=== PATIENT | male | born 1995 | race African-American/Black ===

== ENCOUNTER 2018-09-11 14:20 | Emergency (ER) | payer OTHER ==
[2018-09-11 15:15] LABS: URINE BLOOD (Dip) POC Negative (NEGATIVE); URINE GLUCOSE (Dip) POC Negative (NEGATIVE); URINE KETONES (Dip) POC Negative (NEGATIVE); URINE LEUKOCYTE EST (Dip) POC 2+ (NEGATIVE); URINE NITRITE (Dip) POC Negative (NEGATIVE); URINE TOTAL PROTEIN POC Negative (NEGATIVE)
[2018-09-11] MEDS: SOD CHLORIDE 0.9% 1,000 ML IV (15:20)
[2018-09-11] MEDS: DIPHENHYDRAMINE 50 MG INJ IV (15:21)
[2018-09-11] MEDS: METOCLOPRAMIDE 10 MG INJ IV (15:21)
[2018-09-11] MEDS: KETOROLAC 30 MG INJ IV (15:22)
[2018-09-11 15:31] LABS: WHITE BLOOD COUNT 5.6 10^3/ul (4.8-10.8)
[2018-09-11 15:31] LABS: HEMATOCRIT 45.2 % (42.0-52.0); HEMOGLOBIN 15.3 g/dl (14.0-18.0); MEAN CORPUSCULAR HGB CONC 33.8 g/dl (32.0-37.0); MEAN CORPUSCULAR VOLUME 82.6 fl (82.0-101.0); MEAN PLATELET VOLUME 9.4 fl (7.4-10.4); PLATELET COUNT 376 10^3/UL (140-415); RED BLOOD COUNT 5.47 10^6/ul (4.70-6.10); RED CELL DISTRIBUTION WIDTH 12.4 % (11.5-14.5)
[2018-09-11 15:36] LABS: ADD MAN DIFF? YES
[2018-09-11 15:49] LABS: ALANINE AMINOTRANSFERASE 17 IU/L (13-69); ALBUMIN 4.3 g/dl (3.3-4.9); ALBUMIN/GLOBULIN RATIO 1.34; ALKALINE PHOSPHATASE 97 IU/L (42-121); ANION GAP 11 (5-13); ASPARTATE AMINO TRANSFERASE 18 IU/L (15-46); BILIRUBIN,INDIRECT 0.3 mg/dl (0-1.1); BILIRUBIN,TOTAL 0.3 mg/dl (0.2-1.3); BLOOD UREA NITROGEN 10 mg/dl (7-20); CALCIUM 9.7 mg/dl (8.4-10.2); CARBON DIOXIDE 26 mmol/L (21-31); CHLORIDE 106 mmol/L (97-110); CREATININE 0.78 mg/dl (0.61-1.24); Estimated GFR > 60 mL/min (>60); GLUCOSE 84 mg/dl (70-220); LIPASE 48 U/L (23-300); POTASSIUM 4.2 mmol/L (3.5-5.1); SODIUM 143 mmol/L (135-144); TOTAL PROTEIN 7.5 g/dl (6.1-8.1)
[2018-09-11 16:39] LABS: ANISOCYTOSIS 1+ (0-0); EOSINOPHILS % (M) 3 % (0-7); LYMPHOCYTES #M 3.4 10^3/ul (0.8-2.9); LYMPHOCYTES % (M) 62 % (15-51); METAMYELOCYTES %M 1 % (0-0); MICROCYTOSIS 1+ (0-0); MONOCYTE #M 0.1 10^3/ul (0.3-0.9); MONOCYTES % (M) 2 % (0-11); PLATELET ESTIMATE NORMAL; REACTIVE LYMPHOCYTES% (M) 1 % (0-0); SEGMENTED NEUTROPHILS (M) % 31 % (39-77); SMUDGE%M 14 % (0-0)
== END 2018-09-11 16:25 | disposition home or self-care (01) ==
LOC: FTE 16:25
DX: R51 Headache (principal); R19.7 Diarrhea, unspecified; I10 Essential (primary) hypertension
CPT/HCPCS: 36415; 80053; 81003; 83690; 85025; 87086; 96374; 96375; 99284-25

== ENCOUNTER 2018-10-15 23:42 | Emergency (ER) | payer SELFPAY, OTHER | END 2018-10-16 00:45 | disposition left against medical advice (07) | LOC: FTE 23:42 | DX: Z53.21 Procedure and treatment not carried out due to patient leaving prior to being seen by health care provider (principal) ==

== ENCOUNTER 2019-02-19 12:58 | Emergency (ER) | payer OTHER ==
[2019-02-19] MEDS ORDERED: ACETAMINOPHEN 500 MG TAB PO (14:01)
[2019-02-19] MEDS ORDERED: KETOROLAC 30 MG INJ IM (14:11)
[2019-02-19] MEDS ORDERED: IBUPROFEN 600 MG TAB PO (14:30)
[2019-02-19] MEDS: IBUPROFEN LIQUID (PED) 20 MG/ML CUP PO (14:42)
[2019-02-19] MEDS: ACETAMINOPHEN 160 MG/5ML CUP PO (14:42)
[2019-02-19 15:17] LABS: MONOTEST Negative (NEG)
== END 2019-02-19 16:11 | disposition home or self-care (01) ==
LOC: FTE 12:58
DX: J02.0 Streptococcal pharyngitis (principal); I10 Essential (primary) hypertension
CPT/HCPCS: 86308; 99283

== ENCOUNTER 2019-02-24 03:04 | Emergency (ER) | payer OTHER | END 2019-02-24 04:57 | disposition home or self-care (01) | LOC: FTE 03:04 | DX: Z76.0 Encounter for issue of repeat prescription (principal) | CPT/HCPCS: 99281 ==